=== PATIENT | female | born 1975 ===

== ENCOUNTER → 2021-05-19 | Day surgery (SDC) | payer OTHER ==
[~2021-05-19] VITALS: Ht 162.6 cm; Wt 58.0 kg
[~2021-05-19] MED LIST: BIOTIN PO; KETOROLAC TROME10 MG PO; NORCO 5-325 TA1 EACH PO; VITAMIN B-121000 MC1 PO; VITAMIN D PO; VITAMIN E400 UNI1 PO
[2021-05-19 09:02] LABS: HCT 36.5 % (37.0-47.0); HGB 11.6 g/dl (12.5-16.0); MCH 28.2 pg (25.0-31.0); MCHC 31.8 g/dL (32.0-36.0); MCV 88.8 fL (78.0-100.0); MPV 10.9 fL (6.0-9.5); RBC 4.11 M/uL (4.20-5.40); RDW 13.9 % (11.5-14.0); WBC 6.4 K/uL (4.0-10.5)
[2021-05-19 09:11] LABS: HCG (URINE) SCREEN NEGATIVE (NEGATIVE)
== END | disposition home or self-care (01) ==
LOC: FAS 08:18
PROVIDERS: Specialist
DX: N92.1 Excessive and frequent menstruation with irregular cycle (principal); R25.2 Cramp and spasm; Z98.51 Tubal ligation status
CPT/HCPCS: 36415; 84703; 86850; 86900; 86901; J0690; J1100; J1885; J2001; J2250; J2405; J2704; J3010; J7120